=== PATIENT | female | born 1950 | race Caucasian/White ===

== ENCOUNTER 2019-05-14 13:59 | Inpatient (IN) | payer OTHER, BC ==
[~2019-05-14] VITALS: Ht 165.1 cm; Wt 76.2 kg
--- NOTE | 2019-05-14 13:59 | NUR ---
PATIENT BIBA TO BED 9 AT THIS TIME.
--- NOTE | 2019-05-14 14:02 | NUR ---
C/O WEAKNESS TO LOWER LEGS X YESTERDAY. PT USUALLY USES A SCOOTER TO MOVE BUT HAS BEEN UNABLE TO RECENTLY MOVE FROM SCOOTER TO BED AND RESTROOM. PT UNABLE TO LIFT LEGS OR HIP DUE TO MS. CAN MOVE ARMS. PT DENIES PAIN. CAREGIVER BEDSIDE. PT ALERT AND AWAKE. VS STABLE. PMH- MS
--- NOTE | 2019-05-14 14:03 | NUR ---
PT BIBA FROM HOME NEURO-PUPILS PERRL, EQUAL ARM FACILITY COORDINATOR, PT MEMORY INTACT, SPEAKING IN FULL AND COMPLETE SENTENCES PT UNABLE TO ELEVATE LOWER EXTREMETIES
[2019-05-14 14:08] VITALS: BP 103/54
--- NOTE | 2019-05-14 14:37 | NUR ---
LAB AT BEDSIDE
--- NOTE | 2019-05-14 14:45 | NUR ---
report given to tyler eason, transfer of care
[2019-05-14 14:48] LABS: BASOPHILS # (AUTO) 0.1 K/uL (0.00-0.22); BASOPHILS % (AUTO) 0.5 % (0.0-2.0); EOSINOPHILS # (AUTO) 0.1 K/uL (0-0.4); EOSINOPHILS % (AUTO) 0.5 % (0.0-4.0); HEMATOCRIT 41.7 % (36-48); HEMOGLOBIN 13.6 g/dL (12.0-16.0); LYMPHOCYTES # (AUTO) 1.7 K/uL (2.5-16.5); LYMPHOCYTES % (AUTO) 11.2 % (20.5-51.1); MEAN CORPUSCULAR HEMOGLOBIN 28 pg (27-31); MEAN CORPUSCULAR HGB CONC 33 g/dL (33-37); MEAN CORPUSCULAR VOLUME 86.9 fL (80-94); MONOCYTES % (AUTO) 6.3 % (1.7-9.3); NEUTROPHILS # (AUTO) 12.3 K/uL (1.8-7.7); NEUTROPHILS % (AUTO) 81.5 % (42.2-75.2); PLATELET COUNT (AUTO) 311 K/uL (140-450); RED CELL DISTRIBUTION WIDTH 13.3 % (11.6-13.7); WHITE BLOOD COUNT (AUTO) 15.1 K/uL (4.8-10.8)
--- NOTE | 2019-05-14 14:54 | NUR ---
BILATERAL LOWER EXTREMEITY EDEMA NOTED WITH SUPERFICIAL ABRASIONS. COOL TO TOUCH EXTREMETIES. PALPABLE POSTIAL PULSES
--- NOTE | 2019-05-14 15:00 | NUR ---
# 14 FR Urinary catheter inserted utilizing sterile technique. Immediate return of 150 ml YELLOW/BROWN urine noted. Urine sample collected and sent to lab. Pt tolerated procedure WELL.
[2019-05-14 15:05] LABS: ANION GAP 13.1 (8-16); CARBON DIOXIDE 28.3 mmol/L (21-32); CREATININE 0.9 mg/dL (0.6-1.3); POTASSIUM 3.4 mmol/L (3.5-5.1)
[2019-05-14 15:11] LABS: ALBUMIN 3.2 g/dL (3.4-5.0); TOTAL BILIRUBIN 0.7 mg/dL (0.0-1.0)
--- NOTE | 2019-05-14 15:14 | NUR ---
XRAY AT BEDSIDE
--- NOTE | 2019-05-14 15:17 | NUR ---
[facility]
[2019-05-14] MEDS ORDERED: NACL 0.9% 1,000 ML IV ONE ×2 (16:00→16:55)
[2019-05-14 16:09] LABS: APPEARANCE,URINE CLEAR (CLEAR); BILIRUBIN,URINE NEGATIVE (NEGATIVE); BLOOD, URINE 2+ (NEGATIVE); COLOR,URINE YELLOW (YELLOW); LEUKOCYTE ESTERASE ,URINE NEGATIVE (NEGATIVE); NITRITE, URINE POSITIVE (NEGATIVE); PH,URINE 5.5 (5.0-9.0); UGLUCOSE NEGATIVE (NEGATIVE)
--- NOTE | 2019-05-14 16:26 | NUR ---
pt refusing nacl bolus at this time. states she wants to go home. dr mckoy states she will speak with pt
[2019-05-14] MEDS ORDERED: LEVOFLOXACIN 500 MG/D5W PREMIX 100 ML IV ONE (16:55)
[2019-05-14 17:05] LABS: RBC,URINE 0-5 /HPF (0-5)
[2019-05-14 17:06] LABS: URINE AMORPHOUS URATE 2+ /HPF (None Seen); WBC,URINE NONE SEEN /HPF (0-5)
[2019-05-14] MEDS ORDERED: HYDROcodone/APAP 5/325 MG 1 TAB TAB PO PRN (17:30)
[2019-05-14] MEDS ORDERED: ZOLPIDEM 5 MG TAB PO PRN (17:30)
[2019-05-14] MEDS ORDERED: ACETAMINOPHEN 325 MG TAB PO PRN (17:30)
[2019-05-14] MEDS ORDERED: ONDANSETRON 4 MG/2 ML VIAL IM/IVP PRN (17:30)
[2019-05-14] MEDS ORDERED: DOCUSATE SODIUM 100 MG GELCAP PO PRN (17:30)
[2019-05-14] MEDS ORDERED: GABA300C PO (17:42)
[2019-05-14] MEDS ORDERED: DIT5 PO (17:42)
[2019-05-14] MEDS ORDERED: ACYC400T PO (17:42)
[2019-05-14] MEDS ORDERED: DULO60EC PO (17:42)
[2019-05-14] MEDS ORDERED: [UNRECOGNIZED DRUG - CODE] PO (17:42)
[2019-05-14] MEDS ORDERED: DULO30EC PO (17:42)
[2019-05-14] MEDS ORDERED: VALS160T2 PO (17:42)
[2019-05-14] MEDS ORDERED: [UNRECOGNIZED DRUG - CODE] IN (17:42)
[2019-05-14] MEDS ORDERED: LEVO0.124 PO (17:42)
--- NOTE | 2019-05-14 17:55 | NUR ---
Patient will be admitted to care of DR ZAMORANO. Admited to MS. Will go to room 108B. Belongings list completed. Report to
--- NOTE | 2019-05-14 18:00 | NUR ---
RECEIVE BEDSIDE REPORT FROM SUPERVISOR SCREEN MAKING NURSE. PATIENT IS AWAKE, ALERT AND ORIENTEDX4. NO SIGNS OF DISTRESS ON RA. SKIN HAS WOUNDS ON BLE. REDNESS ON RLE. PHOTOS TAKEN. IV ON R AC INFUSING NS AT 100. CLEAN, DRY AND INTACT. PATIENT HAS MS, FALL RISK PROTOCOL IN PLACE. MRSA SWAB AND RLE CULTURE DONE. BED IN LOW POSITION, PATIENT ABLE TO MAKE NEEDS KNOWN. WILL CONTINUE TO MONITOR Addendum: 05/14/19 at 1946 by Alexa Carlisle RN B/P 125/40 HR 82 99% RA RR 18 TEMP 97.9
[2019-05-14 18:14] LABS: BARBITURATE, URINE NEG. ng/ml (NEG <=200); BENZODIAZEPINE, URINE NEG. ng/mL (NEG <=200); CANNABINOID, URINE NEG. ng/mL (NEG <=50); COCAINE, URINE NEG. ng/mL (NEG <=300); OPIATE, URINE NEG. ng/mL (NEG <=2000); PHENCYCLIDINE SCREEN,URINE NEG. ng/mL (NEG <=25)
[2019-05-14 18:24] LABS: PROTHROMBIN TIME 10.3 secs (10.8-13.4)
[2019-05-14 18:27] LABS: FREE T4 (FREE THYROXINE) 1.06 ng/dL (0.76-1.46); MAGNESIUM 1.7 mg/dL (1.8-2.4); PHOSPHORUS 3.6 mg/dL (2.5-4.9); THYROID STIMULATING HORMONE 1.62 uIU/mL (0.34-3.74)
[2019-05-14] MEDS: NACL 0.9% 1,000 ML IV SCH (19:00)
[2019-05-14] MEDS ORDERED: POTASSIUM CHLORIDE 40 MEQ, LIDOCAINE MPF 1% 25 MG in NACL 0.9% 250 ML IV ONE (19:30)
--- NOTE | 2019-05-14 19:44 | NUR ---
GAVE BEDSIDE REPORT TO HEALTH INFORMATION TECHNOLOGIST NURSE. PATIENT ENDORSED IN STABLE CONDITION. GAVE NURSE HOME MEDS AND ASKED HER TO UPDATE MED RECON
--- NOTE | 2019-05-14 19:45 | NUR ---
RECEIVED PT FROM MIKE RN PT IS AAOX4 INCONTINEN WITH DX UTI AND MULTIPLE SCLEROSIS, IV ON RT AC INFUSIG WELL, BLE CELLULITIS AND MULTIPLES SCAB, MRSA DONE INITIAL ASSESSMENT DONE , PT BROUG HOME MEDEC LUIS DANIEL OF THEM PT ALREADY TOOK AT HOME DR GARCIA IS HERE AND SEE THE PT
[2019-05-14 20:00] VITALS: BP 116/45
[2019-05-14] MEDS ORDERED: KETOROLAC 15 MG/ML VIAL IVP PRN (20:40)
[2019-05-14] MEDS ORDERED: ACYCLOVIR PO SCH (21:00)
[2019-05-14] MEDS ORDERED: cefTRIAXone 1,000 MG VIAL ONE (21:17)
[2019-05-14] MEDS ORDERED: GLAT40SY SQ (21:24)
[2019-05-14] MEDS ORDERED: BACL10TA4 PO (21:38)
[2019-05-14] MEDS: ACYCLOVIR 200 MG CAP PO SCH (21:55)
[2019-05-14] MEDS ORDERED: MAG SULF 2000 MG/WATER PREMIX 50 ML IV SCH (22:40)
--- NOTE | 2019-05-14 23:00 | NUR ---
DANG CATH INSERTED WITH FR 16 DRAINING CLEAR WANDA URINE.
[2019-05-15] VITALS: BP 110/40
--- NOTE | 2019-05-15 | NUR ---
DANG CATH INFUSING WELL YELLOW URINE PT HAS A BM SEMI SOLID
[2019-05-15 04:00] VITALS: BP 94/76
--- NOTE | 2019-05-15 04:00 | NUR ---
SPONGE BATH GIVEN LINEN CHANGED REPOSITIONED Q2H , DANG CATH DRAINING WELL;YELLOW URINE
[2019-05-15] MEDS ORDERED: LEVOTHYROXINE 0.025 MG TAB ONE ×2 (06:15→06:17)
[2019-05-15] MEDS ORDERED: LEVOTHYROXINE 0.1 MG TAB ONE (06:16)
[2019-05-15] MEDS: NACL 0.9% 1,000 ML IV SCH ×2 (06:25→23:50)
--- NOTE | 2019-05-15 06:25 | NUR ---
PATIENT HAS BEEN SCREENED AND CATEGORIZED HIGH NUTRITION RISK. PATIENT WILL BE SEEN WITHIN 1-2 DAYS OF ADMISSION. 05/13/19-05/15/19 MADDIE RIVAS MS, RDN
[2019-05-15] MEDS: LEVOTHYROXINE 0.1 MG, LEVOTHYROXINE 0.025 MG PO SCH ×2 (06:27)
[2019-05-15] MEDS ORDERED: LEVOTHYROXINE 0.112 MG TAB PO SCH (06:30)
--- NOTE | 2019-05-15 07:00 | NUR ---
PT IS ENDORSED TO DAY SHIFT NURSE FOR CONTINUE OF CARE
--- NOTE | 2019-05-15 07:25 | NUR ---
RECEIVED REPORT FROM SINGLE CORNER CUTTER NURSE. PATIENT SITTING IN BED TALKING ON THE PHONE. NO DISTRESS NOTED. DENIES ANY PAIN. AAOX4, CALM, COOPERATIVE, SKIN COLOR APPROPRIATE TO ETHNICITY, WARM TO TOUCH. BLE CELLULITIS WITH REDNESS AND MULTIPLE SCABS NOTED. IV SITE INTACT, PATENT, AND INFUSING IVF PER MD ORDERS. RESPIRATIONS EVEN, UNLABORED, ON ROOM AIR. REVIEWED PLAN OF CARE WITH PATIENT. PATIENT VERBALIZED UNDERSTANDING. SAFETY MEASURES IN PLACE, CALL LIGHT WITHIN REACH. WILL CONTINUE TO MONITOR.
[2019-05-15 07:43] LABS: CARBON DIOXIDE 27.6 mmol/L (21-32); CREATININE 1.3 mg/dL (0.6-1.3); POTASSIUM 3.6 mmol/L (3.5-5.1)
[2019-05-15 07:44] LABS: BASOPHILS % (AUTO) 0.3 % (0.0-2.0); EOSINOPHILS # (AUTO) 0.1 K/uL (0-0.4); EOSINOPHILS % (AUTO) 0.8 % (0.0-4.0); HEMATOCRIT 33.4 % (36-48); HEMOGLOBIN 10.8 g/dL (12.0-16.0); LYMPHOCYTES % (AUTO) 14.6 % (20.5-51.1); MEAN CORPUSCULAR HEMOGLOBIN 28 pg (27-31); MEAN CORPUSCULAR HGB CONC 32 g/dL (33-37); MEAN CORPUSCULAR VOLUME 87.8 fL (80-94); MONOCYTES # (AUTO) 0.9 K/uL (0.8-1.0); MONOCYTES % (AUTO) 6.3 % (1.7-9.3); NEUTROPHILS # (AUTO) 10.9 K/uL (1.8-7.7); PLATELET COUNT (AUTO) 241 K/uL (140-450); RED BLOOD CELL COUNT(AUTO) 3.81 MIL/uL (4.20-5.40); RED CELL DISTRIBUTION WIDTH 13.5 % (11.6-13.7)
[2019-05-15 07:52] LABS: CHOL/HDL RATIO 2.5 (1-4.5)
[2019-05-15 08:00] VITALS: BP 85/39
--- NOTE | 2019-05-15 08:57 | NUR ---
(05/15/19) RD INITIAL ASSESSMENT COMPLETED PLEASE REFER TO NUTRITION ASSESSMENT UNDER CARE ACTIVITY FOR ESTIMATED NUTRITIONAL NEEDS. RD RECOMMENDATIONS: 1. CONTINUE REGULAR DIET TOLERATED. 2. RD WILL F/U 5-7 DAYS; LOW RISK. MADDIE RIVAS MS, RDN
[2019-05-15] MEDS: VALSARTAN 80 MG TAB PO SCH (09:00)
[2019-05-15] MEDS ORDERED: DULoxetine 30 MG CAPDR PO SCH ×3 (09:00→11:00)
[2019-05-15] MEDS ORDERED: GABAPENTIN 300 MG CAP PO SCH ×2 (09:00→21:00)
[2019-05-15] MEDS ORDERED: NON-FORMULARY ITEM MC SCH (09:00)
[2019-05-15 09:30] VITALS: BP 118/41
--- NOTE | 2019-05-15 10:45 | NUR ---
DISTRICT COURT ADMINISTRATOR AT BEDSIDE REVIEWING PLAN OF CARE AND PLACING DRESSING ON BLE FOR VENOUS STASIS ULCERS. PATIENT TOLERATED WELL. SCHEDULED MEDICATIONS DUE GIVEN. WILL CONTINUE TO MONITOR.
[2019-05-15] MEDS: ACYCLOVIR 200 MG CAP PO SCH ×2 (10:57→21:13)
[2019-05-15] MEDS: PANTOPRAZOLE 40 MG TABEC PO SCH (10:57)
[2019-05-15] MEDS: OXYBUTYNIN 5 MG TAB PO SCH (10:57)
[2019-05-15] MEDS: LACTOBACILLUS RHAMNOSUS GG 1 EACH CAP PO SCH (10:58)
[2019-05-15] MEDS: BACLOFEN 10 MG TAB PO SCH ×3 (10:58→16:52)
[2019-05-15] MEDS ORDERED: INDAPAMIDE 1.25 MG PO SCH (11:05)
--- NOTE | 2019-05-15 12:13 | NUR ---
PATIENT SITTING IN BED COMFORTABLY. NO DISTRESS NOTED. SCHEDULED MEDICATIONS DUE GIVEN. WILL CONTINUE TO MONITOR.
--- NOTE | 2019-05-15 13:39 | NUR ---
PATIENT SITTING IN BED TALKING WITH FAMILY MEMBERS AT BEDSIDE. NO DISTRESS NOTED. DENIES ANY PAIN. SCHEDULED MEDICATIONS DUE GIVEN. WILL CONTINUE TO MONITOR.
[2019-05-15 16:00] VITALS: BP 101/31
--- NOTE | 2019-05-15 16:54 | NUR ---
SCHEDULED MEDS DUE GIVEN. WILL CONTINUE TO MONITOR.
--- NOTE | 2019-05-15 19:21 | NUR ---
GAVE REPORT TO DIRECTOR OF LITIGATION NURSE FOR CONTINUITY OF CARE. PATIENT IN STABLE CONDITION.
--- NOTE | 2019-05-15 19:21 | NUR ---
RECIEVED PT . AAOX4 ,NID -O2 SAT WNL , BUT PT. IS HYPOTENSIVE - 96/36 - BUT ASYMPTOMATIC - DENIES ANY PAIN AT THIS TIME , ON FC - DRAINING YELLOWISH U.O , BLE WITH CELLULITIS - THE AM NURSE SAID DON'T REMOVED BOOT OR DRESSING ONTHE LEG/S , LET THE POWER GENERATION PLANT OPERATOR REMOVE IT PER ORDERED BY POWER GENERATION PLANT OPERATOR , DENIES ANY PAIN.IV SITE INTACT AND PATENT, PLAN OF CARE DISCUSSED AND VERBALIZED UNDERSTANDING. WILL CONT, TO MONITOR.
[2019-05-15 20:00] VITALS: BP 90/36
[2019-05-15] MEDS ORDERED: NACL 0.9% 250 ML IV ONE ×2 (22:20→23:50)
--- NOTE | 2019-05-15 22:34 | NUR ---
BP RE CHECKED 96/36 - SITTING POSITION - 250NSS IVF GIVEN ORDERED. - WILL CONT. TO MONITOR.
--- NOTE | 2019-05-15 23:50 | NUR ---
REFER TO RONALD - STILL HYPOTENSIVE 90/40- BUT ASYMPTOMATIC - IVF NSS 259 GIVEN BOLUS ORDERD WILL CONT. TO MONITOR
[2019-05-16] VITALS: BP 90/30
--- NOTE | 2019-05-16 01:00 | NUR ---
90/50 BP INFORM RONALD - ASYMPTOMATIC -NO FRUTHER OREDERED LONG ASYMPTOMATIC NICK MADE WILL MONITOR
--- NOTE | 2019-05-16 02:00 | NUR ---
MADE ROUNDS - HYPOTENSIVE , BUT ASYMPTOMATIC , COMFORTABLE LYING ON BED - WITH FC - GOOD U.O
[2019-05-16 04:00] VITALS: BP 90/40
--- NOTE | 2019-05-16 04:00 | NUR ---
NO COMPLAIN MADE AT THIS TIME - V/S - MONITORING - CALL LIGHT WITHIN REACH
[2019-05-16] MEDS ORDERED: LEVOTHYROXINE 0.025 MG TAB ONE ×3 (05:41→05:49)
[2019-05-16] MEDS ORDERED: NACL 0.9% 250 ML IV ONE (05:55)
--- NOTE | 2019-05-16 06:00 | NUR ---
RONALD INFORMED ABOUT PT. PERSISTENT LOW BP - WILL FF. UP - WOF THE V/S . CALL LIGHT WITHIN REACH.
--- NOTE | 2019-05-16 07:05 | NUR ---
RECEIVED PT FROM RESTAURANT MAINTENANCE TECHNICIAN NURSE, YAMILETH, PT IS AWAKE AND LYING ON THE BED WITH SIDE RAILS UP AND CALL LIGHT WITHIN REACH, IV LINE ON THE RT AC G. 22 WITH NS INFUSING AT 60ML/HR, DANG CATHETER IN PLACE WITH 200ML DRAIN OF URINE, PT DENIES PAIN AND HAS B/L LEGS CELLULITIS REINFORCED WITH DRESSINGS, NO SIGN OF DISTRESS NOTED AND WILL MONITOR PT.
[2019-05-16 07:07] LABS: BASOPHILS % (AUTO) 0.5 % (0.0-2.0); EOSINOPHILS # (AUTO) 0.5 K/uL (0-0.4); EOSINOPHILS % (AUTO) 5.4 % (0.0-4.0); HEMATOCRIT 30.9 % (36-48); HEMOGLOBIN 10.4 g/dL (12.0-16.0); LYMPHOCYTES # (AUTO) 2.7 K/uL (2.5-16.5); LYMPHOCYTES % (AUTO) 29.7 % (20.5-51.1); MEAN CORPUSCULAR HEMOGLOBIN 29 pg (27-31); MEAN CORPUSCULAR HGB CONC 34 g/dL (33-37); MEAN CORPUSCULAR VOLUME 87.3 fL (80-94); MONOCYTES # (AUTO) 0.7 K/uL (0.8-1.0); MONOCYTES % (AUTO) 8.1 % (1.7-9.3); NEUTROPHILS # (AUTO) 5.1 K/uL (1.8-7.7); NEUTROPHILS % (AUTO) 56.3 % (42.2-75.2); PLATELET COUNT (AUTO) 231 K/uL (140-450); RED BLOOD CELL COUNT(AUTO) 3.54 MIL/uL (4.20-5.40); RED CELL DISTRIBUTION WIDTH 13.5 % (11.6-13.7)
--- NOTE | 2019-05-16 07:18 | NUR ---
JUST GAVE BOLUS LATEDST BP 90/50 - ENDORSED TO AM SHIFT AAOX4 - NO FURTHER COMPLAIN MADE . RONALD INFORMED THAT THE PT. STILL HYPOTENSIVE.
[2019-05-16 07:19] LABS: ANION GAP 12.5 (8-16); CARBON DIOXIDE 24.9 mmol/L (21-32); CREATININE 0.8 mg/dL (0.6-1.3); POTASSIUM 3.4 mmol/L (3.5-5.1)
[2019-05-16 08:00] VITALS: BP 107/41
[2019-05-16] MEDS: LEVOTHYROXINE 0.1 MG, LEVOTHYROXINE 0.025 MG PO SCH ×2 (08:03)
--- NOTE | 2019-05-16 08:35 | NUR ---
PT. SEEN AND TREATED BY CONFERENCE ASSISTANT, WILL CONTINUE TO FOLLOW INSTRUCTIONS FOR BLE WOUNDS
[2019-05-16] MEDS ORDERED: DULoxetine 30 MG CAPDR PO SCH (09:00)
[2019-05-16] MEDS: VALSARTAN 80 MG TAB PO SCH (09:00)
[2019-05-16] MEDS ORDERED: POTASSIUM CHLORIDE 10 MEQ TABER PO SCH (09:00)
[2019-05-16] MEDS ORDERED: INDAPAMIDE 1.25 MG PO SCH (09:00)
[2019-05-16] MEDS ORDERED: PATIENTS OWN INJECTABLE SUBQ SCH (09:00)
--- NOTE | 2019-05-16 09:03 | NUR ---
DC PLANNIN YRS OLD FEMALE PATIENT WAS ADMITTED FROM HOME WITH A DX OF UTI AND MULTIPLE SCLEROSIS. PT HAS A HX OF MS HTN, HYPOTHYROIDISM. ADMINISTERED IV ROCEPHIN FOR UTI, PT ORDERED FOR GENERALIZE WEAKNESS , CONTINUE HOME MEDS PAIN MEDICATION AND NEUROLOGIST CONSULT. DC PLAN PER MD ORDER. CM TO FOLLOW. Addendum: 05/16/19 at 1313 by Bonnie Rosenbaum CM DC PLANNING PER DR WAGGONER CONSULT TO TRANSFER TO [facility]IGHER LEVEL TO [facility] PER PT REQUEST. CALLED [facility] [phone] SPOKE WITH JESSY URIAS , AND FAXED TO [phone] . CM TO FOLLOW Addendum: 05/16/19 at 6145 by Bonnie Rosenbaum CM DC PLANNING RECEIVED A CALL FROM [facility] SPOKE WITH [facility] THEY ACCEPTED PATIENT. PT CAN GO TO ROOM [address] YAS ASH # TO GIVE REPORT [phone] ARRANGED TRANSPORT WITH [facility] HYDRAULIC LIFT OPERATOR TIME 3:30 PM NOTIFIED WALLY CESPEDES
[2019-05-16] MEDS: LACTOBACILLUS RHAMNOSUS GG 1 EACH CAP PO SCH (10:03)
[2019-05-16] MEDS: ACYCLOVIR 200 MG CAP PO SCH (10:03)
--- NOTE | 2019-05-16 10:03 | NUR ---
PT WAS GIVEN ORAL MEDICATIONS AND TOLERATED, WILL MONITOR PT.
[2019-05-16] MEDS: BACLOFEN 10 MG TAB PO SCH ×2 (10:04→13:56)
[2019-05-16] MEDS: OXYBUTYNIN 5 MG TAB PO SCH (10:04)
[2019-05-16] MEDS: PANTOPRAZOLE 40 MG TABEC PO SCH (10:06)
--- NOTE | 2019-05-16 13:56 | NUR ---
PT WAS GIVEN BACLOFEN NOW AND WILL MONITOR PT.
--- NOTE | 2019-05-16 14:40 | NUR ---
Fittings Tightener Assessment/Discharge Plan High Risk DC Screen Yes Name: Neli Harper Home Relationship: sister Pre-Admission Living Arrangements: Lives Alone Prior ADL Independent Current Home Health Name/Tel: N/A Current DME/02 Name/Tel: electric wheelchair, walker, no home O2 Current Hospice Name/Tel: N/A Current Dialysis Name/Tel: N/A Healthcare Decision Maker: Patient Advance Directive No Information Taught: Advance Directive Community Resources Person Taught: Patient Teaching Tools: Community Resources Computer Generated Print Verbal Factors Affecting Learning: None Participation Level: Active Evaluation: Gestures Understanding Verbalizes Understanding Educator: LORRAINE Malone Tentative Discharge Plan Summary: Patient is a 68 year old female, admitted for UTI and MS. I met with patient at bedside. Patient alert and oriented x4. Patient lives alone at home and is in agreement with transfer to [facility]. Patient's pcp is Verena Delgado. She drives to pcp's office. Patient's medication is delivered to her home and does not have any difficulty obtaining them. She stated she is able to walk short distance (5 feet) using her walker. She denied hx of mental health. She also denied alcohol/substance abuse. She requested community resources for home care. I provided her with community resources for home care including information on [facility]. Fittings Tightener and/or Local Hazmat Driver will follow up as needed. Signature: LORRAINE Malone Date: May 16, 2019
--- NOTE | 2019-05-16 15:20 | NUR ---
CALLED [facility] AT [phone] AND GAVE REPORT TO SAM, CHARGE NURSE, AND INFORMED THAT PT WILL BE PLACE IN RM 2143 AND WILL BE TRANSPORTED VIA GURNEY BY [facility], AND RN VERBALIZED UNDERSTANDING.
--- NOTE | 2019-05-16 16:00 | NUR ---
DISCHARGED TEACHINGS AND INSTRUCTIONS WERE GIVEN TO PT AND VERBALIZED UNDERSTANDING. PT VERBALIZED THAT SHE INFORMED HER SISTER, QUANG SELLERS AT [phone], THAT SHE WILL BE TRANSFERRED TO [facility].
--- NOTE | 2019-05-16 16:10 | NUR ---
DISCHARGED PT TO [facility] VIA [facility] WITH [facility]SPORT AND FRIEND, DANG CATHETER AND IV LINE ON THE RT AC G. 22 WERE KEPT INTACT, INSTRUCTIONS AND TEACHINGS WERE GIVEN TO PT AND VERBALIZED UNDERSTANDING, PT IS STABLE AT THIS TIME.
[2019-05-16 17:29] LABS: MAGNESIUM 2.3 mg/dL (1.8-2.4); PHOSPHORUS 3.2 mg/dL (2.5-4.9)
[2019-05-17] MEDS ORDERED: GLATIRAMER ACETATE 40 MG SUBQ SCH (09:00)
== END 2019-05-16 16:05 | disposition short-term general hospital (02) | DRG 58 ==
LOC: MED 13:59 → MTU 17:28
PROVIDERS: ADMIT General Practice; ATTEND General Practice
DX: G35 Multiple sclerosis (principal); N17.0 Acute kidney failure with tubular necrosis; G93.41 Metabolic encephalopathy; E44.0 Moderate protein-calorie malnutrition; N39.0 Urinary tract infection, site not specified; I87.2 Venous insufficiency (chronic) (peripheral); E86.0 Dehydration; R31.9 Hematuria, unspecified; D64.9 Anemia, unspecified; K44.9 Diaphragmatic hernia without obstruction or gangrene; B35.1 Tinea unguium; A60.00 Herpesviral infection of urogenital system, unspecified; G62.9 Polyneuropathy, unspecified; L30.9 Dermatitis, unspecified; E89.0 Postprocedural hypothyroidism; E83.42 Hypomagnesemia; M62.462 Contracture of muscle, left lower leg; I87.8 Other specified disorders of veins; M62.461 Contracture of muscle, right lower leg; L84 Corns and callosities; M48.061 Spinal stenosis, lumbar region without neurogenic claudication; N32.81 Overactive bladder; M47.816 Spondylosis without myelopathy or radiculopathy, lumbar region; E87.6 Hypokalemia; I10 Essential (primary) hypertension; Z68.28 Body mass index [BMI] 28.0-28.9, adult; Z79.899 Other long term (current) drug therapy; Z90.49 Acquired absence of other specified parts of digestive tract; Z88.1 Allergy status to other antibiotic agents; Z88.5 Allergy status to narcotic agent
CPT/HCPCS: 36415; 70360; 71045; 72131; 80048; 80053; 80305; 81001; 82150; 83036; 83605; 83690; 83735; 83880; 84100; 84134; 84439; 84443; 84484; 85025; 85610; 85730; 87040; 87070; 87075; 87081; 87086; 87186; 87205; 87804; 93005; 93970; 96365; 97116; 97161-GP; 97530; 99285; J0696; J1644; J1885; J3475; J7030; J7060; Q0092

== ENCOUNTER 2021-12-23 19:56 | Emergency (ER) | payer OTHER, BC ==
[~2021-12-23] VITALS: Ht 165.1 cm; Wt 77.1 kg
[2021-12-23 19:56] VITALS: BP 129/69
[~2021-12-23 19:56] MED LIST: ACYC400T14 PO; BACL10TA4 PO; DIT5 PO; DULO30EC PO; DULO60EC1 PO; GABA300C PO; GLAT40SY SQ; LEVO0.124 PO; VALS160T2 PO; [UNRECOGNIZED DRUG - CODE] PO
--- NOTE | 2021-12-23 20:08 | NUR ---
Cole bradshaw in ED - 12/23/21 at 2008 by MEDCRIS PT BIBA BLS ER BED 8
--- NOTE | 2021-12-23 20:08 | NUR ---
PT BIBA BLS ER BED 7
[2021-12-23 20:40] LABS: BASOPHILS % (AUTO) 0.2 % (0.0-2.0); HEMOGLOBIN 8.5 g/dL (12.0-16.0); LYMPHOCYTES # (AUTO) 1.2 K/uL (2.5-16.5); LYMPHOCYTES % (AUTO) 6.4 % (20.5-51.1); MEAN CORPUSCULAR HEMOGLOBIN 19 pg (27-31); MEAN CORPUSCULAR HGB CONC 30 g/dL (33-37); MEAN CORPUSCULAR VOLUME 65.8 fL (80-94); MONOCYTES # (AUTO) 0.7 K/uL (0.8-1.0); NEUTROPHILS # (AUTO) 16.6 K/uL (1.8-7.7); NEUTROPHILS % (AUTO) 89.4 % (42.2-75.2); PLATELET COUNT (AUTO) 410 K/uL (140-450); WHITE BLOOD COUNT (AUTO) 18.6 K/uL (4.8-10.8)
[2021-12-23 20:58] LABS: ALBUMIN 3.1 g/dL (3.4-5.0); ANION GAP 13.8 (8-16); ASPARTATE AMINOTRANSFERASE 19 U/L (15-37); CARBON DIOXIDE 25.2 mmol/L (21-32); CHLORIDE 108 mmol/L (98-107); GLUCOSE 130 mg/dL (74-106); SODIUM SERUM 143 mmol/L (136-145); TOTAL BILIRUBIN 0.4 mg/dL (0.0-1.0); UREA NITROGEN, BLOOD 19 mg/dL (7-18)
--- NOTE | 2021-12-23 21:12 | NUR ---
PT IS ON BEDSIDE MONITOR
--- NOTE | 2021-12-23 21:45 | NUR ---
71YR OLD FEMALE BIB EMS ALERTED MENTAL STATUS. PT WAS FOUND IN BATHROOM BY CARGIVER. PT STATES NOT REMEMBERING HOW SHE GOT ON FLOOR. DENIES ANY HEAD PAIN OR BACK PAIN. CHRONIC L ARM PAIN. PT HAS HX OF MS. PT IS A&OX4. ON BEDSIDE MONITOR HOB ELEVATED BED AT LOWEST POSITION. MS HTN UNKNOWN
[2021-12-23 23:40] VITALS: BP 129/69
--- NOTE | 2021-12-23 23:40 | NUR ---
Patient discharged with v/s stable. Written and verbal after care instructions given and explained. Patient verbalized understanding. Ambulatory with steady gait. All questions addressed prior to discharge. Advised to follow up with PMD.
--- NOTE | 2021-12-23 23:45 | NUR ---
The patient's care was reviewed and supervised by Shasta Garcia RN, RN.
== END 2021-12-23 23:45 | disposition home or self-care (01) ==
LOC: MED 19:56
DX: R55 Syncope and collapse (principal); D72.829 Elevated white blood cell count, unspecified
CPT/HCPCS: 36415; 80053; 83605; 85025; 99283

== ENCOUNTER 2022-08-16 07:31 | Emergency (ER) | payer OTHER, BC ==
[~2022-08-16] VITALS: Ht 157.5 cm; Wt 63.5 kg
[~2022-08-16 07:31] MED LIST changes: -DIT5 PO; +OXYB5TAB44 PO
--- NOTE | 2022-08-16 07:32 | NUR ---
PT PLACED IN BED 02 BY [facility]
[2022-08-16 07:35] VITALS: BP 111/51
[2022-08-16] MEDS ORDERED: NACL 0.9% 2,000 ML IV ONE (07:40)
[2022-08-16] MEDS ORDERED: cefTRIAXone 2,000 MG in DEXTROSE 5% 100 ML IV ONE (07:40)
--- NOTE | 2022-08-16 08:04 | NUR ---
erin swabbed at this time
[2022-08-16 08:19] VITALS: BP 121/41
[2022-08-16] MEDS ORDERED: cefTRIAXone 2,000 MG VIAL ONE (08:33)
[2022-08-16 09:32] LABS: BASOPHILS # (AUTO) 0.1 K/uL (0.00-0.22); EOSINOPHILS # (AUTO) 0.4 K/uL (0-0.4); EOSINOPHILS % (AUTO) 4.1 % (0.0-4.0); HEMATOCRIT 31.5 % (36-48); HEMOGLOBIN 9.6 g/dL (12.0-16.0); LYMPHOCYTES # (AUTO) 3.1 K/uL (2.5-16.5); LYMPHOCYTES % (AUTO) 30.3 % (20.5-51.1); MEAN CORPUSCULAR HEMOGLOBIN 21 pg (27-31); MEAN CORPUSCULAR HGB CONC 30 g/dL (33-37); MEAN CORPUSCULAR VOLUME 67.5 fL (80-94); MONOCYTES # (AUTO) 0.7 K/uL (0.8-1.0); NEUTROPHILS # (AUTO) 5.9 K/uL (1.8-7.7); NEUTROPHILS % (AUTO) 57.6 % (42.2-75.2); PLATELET COUNT (AUTO) 450 K/uL (140-450); RED BLOOD CELL COUNT(AUTO) 4.66 MIL/uL (4.20-5.40); RED CELL DISTRIBUTION WIDTH 19.2 % (11.6-13.7); WHITE BLOOD COUNT (AUTO) 10.2 K/uL (4.8-10.8)
[2022-08-16 09:58] LABS: ANION GAP 12.3 (8-16); CARBON DIOXIDE 28.3 mmol/L (21-32); CHLORIDE 105 mmol/L (98-107); CREATININE 0.8 mg/dL (0.6-1.3); GLUCOSE 108 mg/dL (74-106); POTASSIUM 3.6 mmol/L (3.5-5.1); SODIUM SERUM 142 mmol/L (136-145); UREA NITROGEN, BLOOD 27 mg/dL (7-18)
[2022-08-16 10:04] LABS: ALBUMIN 3.4 g/dL (3.4-5.0); ASPARTATE AMINOTRANSFERASE 13 U/L (15-37); TOTAL BILIRUBIN 0.3 mg/dL (0.0-1.0)
--- NOTE | 2022-08-16 11:30 | NUR ---
STRAIGHT CATHETER TO OBTAIN URINE SAMPLE PATIENT TOLERATED WELL.
[2022-08-16 12:39] LABS: APPEARANCE,URINE CLEAR (CLEAR); BILIRUBIN,URINE NEGATIVE (NEGATIVE); BLOOD, URINE NEGATIVE (NEGATIVE); COLOR,URINE YELLOW (YELLOW); LEUKOCYTE ESTERASE ,URINE 1+ (NEGATIVE); NITRITE, URINE POSITIVE (NEGATIVE); UGLUCOSE NEGATIVE (NEGATIVE)
[2022-08-16] MEDS ORDERED: CEPH-588 PO (12:57)
--- NOTE | 2022-08-16 16:42 | NUR ---
Patient discharged with v/s stable. Written and verbal after care instructions given and explained. Patient alert, oriented and verbalized understanding of instructions. Wheel Chair Assisted with to home ACCOMPANIED BY FRIEND RYLIE PATIENT WAS ASSISTED FROM WHEELCHAIR TO HER PERSONAL SCOOTER TO THE CAR. All questions addressed prior to discharge. ID band removed. Patient advised to follow up with PMD. Rx of KEFEX given. Patient educated on indication of medication including possible reaction and side effects. Opportunity to ask questions provided and answered.STABLE UPON DISCHARGED
== END 2022-08-16 16:41 | disposition home or self-care (01) ==
LOC: MED 07:31
DX: N39.0 Urinary tract infection, site not specified (principal); G35 Multiple sclerosis; Z20.822 Contact with and (suspected) exposure to COVID-19; I10 Essential (primary) hypertension; Z79.899 Other long term (current) drug therapy; Z79.2 Long term (current) use of antibiotics; Z88.5 Allergy status to narcotic agent; Z88.1 Allergy status to other antibiotic agents
CPT/HCPCS: 36415; 71045; 80053; 81001; 83605; 84484; 85025; 87040; 87086; 87426; 93005; 96365; 99285; J0696; J7030; Q0092

== ENCOUNTER 2022-12-13 10:53 | Emergency (ER) | payer OTHER, BC ==
[~2022-12-13] VITALS: Ht 162.6 cm; Wt 59.0 kg
[~2022-12-13 10:53] MED LIST changes: +CEPH-588 PO
--- NOTE | 2022-12-13 10:58 | NUR ---
PATIENT BIBA TO BED 4.
[2022-12-13 10:59] VITALS: BP 103/43; PULSE 69; RESP 16; TEMP 98.1; O2SAT 98
--- NOTE | 2022-12-13 11:05 | NUR ---
72YO F BIB C/O BLOODY DANG CATH X 4 DAYS, PT STATES ABD FEELS BLOATED. PT DENIES FEVER, ABD PAIN, NAUSEA, VOMITING, VAG PAIN, BACK PAIN. LAST BM THURSDAY. NAD NOTED, SAFETY MAINTAINED. HX; HTN, MS
--- NOTE | 2022-12-13 11:35 | NUR ---
X-RAY AT BEDSIDE.
[2022-12-13 12:37] LABS: APPEARANCE,URINE SL CLOUDY (CLEAR); BILIRUBIN,URINE NEGATIVE (NEGATIVE); BLOOD, URINE 3+ (NEGATIVE); COLOR,URINE YELLOW (YELLOW); LEUKOCYTE ESTERASE ,URINE 3+ (NEGATIVE); NITRITE, URINE POSITIVE (NEGATIVE); PH,URINE 8.5 (5.0-9.0); UGLUCOSE NEGATIVE (NEGATIVE)
[2022-12-13 12:46] LABS: RBC,URINE 50-80 /HPF (0-5)
[2022-12-13] MEDS ORDERED: MIRABULK PO (12:46)
[2022-12-13] MEDS ORDERED: DOCU-299 PO (12:46)
[2022-12-13] MEDS ORDERED: SULF-59 PO (12:46)
[2022-12-13 13:01] VITALS: O2SAT 98
--- NOTE | 2022-12-13 13:01 | NUR ---
TRANSPORTATION TO ARRIVE FROM [phone].
[2022-12-13 14:55] VITALS: BP 106/47; PULSE 72; RESP 16; TEMP 98; O2SAT 96
--- NOTE | 2022-12-13 14:55 | NUR ---
Patient discharged with v/s stable. Written and verbal after care instructions given. Patient alert, oriented and verbalized understanding of instructions. Ambulance Transport with to home. All questions addressed prior to discharge. ID band removed. Patient advised to follow up with PMD. Rx of COLACE, MIRALAX AND BACTRIM DS TABLET given. Opportunity to ask questions provided and answered.
--- NOTE | 2022-12-13 14:57 | NUR ---
The patient's care was reviewed and supervised by [place] [facility] ED, RN.
== END 2022-12-13 14:55 | disposition home or self-care (01) ==
LOC: MED 10:53
DX: N39.0 Urinary tract infection, site not specified (principal); K59.00 Constipation, unspecified; I10 Essential (primary) hypertension; Z88.5 Allergy status to narcotic agent; Z88.1 Allergy status to other antibiotic agents; Z79.899 Other long term (current) drug therapy; Z98.890 Other specified postprocedural states
CPT/HCPCS: 74018; 81001; 87086; 99284

== ENCOUNTER 2023-02-18 22:26 | Emergency (ER) | payer OTHER, BC ==
[~2023-02-18] VITALS: Ht 162.6 cm; Wt 72.6 kg
[2023-02-18 22:26] VITALS: BP 122/63; PULSE 67; RESP 16; TEMP 97.7; O2SAT 98
[~2023-02-18 22:26] MED LIST changes: +DOCU-299 PO; +MIRABULK PO; +SULF-59 PO
[2023-02-18 22:55] LABS: BASOPHILS # (AUTO) 0.1 K/uL (0.00-0.22); BASOPHILS % (AUTO) 0.8 % (0.0-2.0); EOSINOPHILS # (AUTO) 0.5 K/uL (0-0.4); EOSINOPHILS % (AUTO) 4.3 % (0.0-4.0); HEMOGLOBIN 11.4 g/dL (12.0-16.0); LYMPHOCYTES # (AUTO) 3.7 K/uL (2.5-16.5); LYMPHOCYTES % (AUTO) 33.3 % (20.5-51.1); MEAN CORPUSCULAR HEMOGLOBIN 27 pg (27-31); MEAN CORPUSCULAR HGB CONC 33 g/dL (33-37); MEAN CORPUSCULAR VOLUME 82.4 fL (80-94); MONOCYTES # (AUTO) 0.7 K/uL (0.8-1.0); MONOCYTES % (AUTO) 6.6 % (1.7-9.3); NEUTROPHILS # (AUTO) 6.1 K/uL (1.8-7.7); PLATELET COUNT (AUTO) 364 K/uL (140-450); RED BLOOD CELL COUNT(AUTO) 4.24 MIL/uL (4.20-5.40); RED CELL DISTRIBUTION WIDTH 16.8 % (11.6-13.7); WHITE BLOOD COUNT (AUTO) 11.1 K/uL (4.8-10.8)
[2023-02-18 23:08] LABS: ALANINE AMINOTRANSFERASE 16 U/L (12-78); ALBUMIN 3.1 g/dL (3.4-5.0); ALKALINE PHOSPHATASE 99 U/L (50-136); ANION GAP 11.2 (8-16); ASPARTATE AMINOTRANSFERASE 17 U/L (15-37); CALCIUM 9.7 mg/dL (8.5-10.1); CHLORIDE 99 mmol/L (98-107); CREATININE 0.8 mg/dL (0.6-1.3); GLUCOSE 84 mg/dL (74-106); POTASSIUM 4.2 mmol/L (3.5-5.1); SODIUM SERUM 133 mmol/L (136-145); TOTAL BILIRUBIN 0.3 mg/dL (0.0-1.0); TOTAL PROTEIN, SERUM 7.1 g/dL (6.4-8.2); UREA NITROGEN, BLOOD 16 mg/dL (7-18)
[2023-02-18 23:46] LABS: APPEARANCE,URINE CLEAR (CLEAR); BILIRUBIN,URINE NEGATIVE (NEGATIVE); BLOOD, URINE 3+ (NEGATIVE); COLOR,URINE YELLOW (YELLOW); LEUKOCYTE ESTERASE ,URINE 3+ (NEGATIVE); NITRITE, URINE NEGATIVE (NEGATIVE); PH,URINE 6.5 (5.0-9.0); PROTEIN,URINE 2+ (NEGATIVE); UGLUCOSE NEGATIVE (NEGATIVE); UROBILINOGEN,URINE 0.2 EU/dL (0.2 - 1)
[2023-02-18 23:51] LABS: RBC,URINE TOO NUMEROUS TO COUN /HPF (0-5)
[2023-02-18 23:52] LABS: BACTERIA,URINE FEW /HPF (None Seen); MUCUS,URINE 1+ /LPF (None Seen); SQUAMOUS EPITHELIAL CELL,UR 0-3 (FEW) /LPF (0-3 (FEW))
[2023-02-19] MEDS ORDERED: CIPR500T4 PO (02:27)
[2023-02-19 04:29] VITALS: O2SAT 98
[2023-02-19] MEDS ORDERED: NACL 0.9% 1,000 ML IV ONE (04:35)
[2023-02-19 05:48] VITALS: BP 92/65; PULSE 88; RESP 16
== END 2023-02-19 07:05 | disposition home or self-care (01) ==
LOC: MED 22:26
DX: N39.0 Urinary tract infection, site not specified (principal); I10 Essential (primary) hypertension; Z79.899 Other long term (current) drug therapy; Z79.2 Long term (current) use of antibiotics; Z88.5 Allergy status to narcotic agent; Z88.1 Allergy status to other antibiotic agents
CPT/HCPCS: 36415; 51702; 80053; 81001; 85025; 87086; 96360; 96361; 99284; J7030; 99283

== ENCOUNTER 2023-04-04 10:18 | Emergency (ER) | payer OTHER, BC ==
[~2023-04-04] VITALS: Ht 165.1 cm; Wt 81.6 kg
[~2023-04-04 10:18] MED LIST changes: +CIPR500T4 PO
[2023-04-04 10:23] VITALS: BP 113/54; PULSE 70; RESP 18; TEMP 98.3; O2SAT 98
[2023-04-04 11:21] LABS: APPEARANCE,URINE CLEAR (CLEAR); BILIRUBIN,URINE NEGATIVE (NEGATIVE); BLOOD, URINE 2+ (NEGATIVE); COLOR,URINE YELLOW (YELLOW); LEUKOCYTE ESTERASE ,URINE 3+ (NEGATIVE); NITRITE, URINE POSITIVE (NEGATIVE); PROTEIN,URINE TRACE (NEGATIVE); UGLUCOSE NEGATIVE (NEGATIVE); UROBILINOGEN,URINE 0.2 EU/dL (0.2 - 1)
[2023-04-04 11:31] LABS: BACTERIA,URINE 3+ /HPF (None Seen); SQUAMOUS EPITHELIAL CELL,UR 4-10 (MOD) /LPF (0-3 (FEW)); WBC,URINE 60-80 /HPF (0-5)
[2023-04-04 11:36] VITALS: O2SAT 99
[2023-04-04 11:47] LABS: BASOPHILS # (AUTO) 0.1 K/uL (0.00-0.22); BASOPHILS % (AUTO) 0.7 % (0.0-2.0); EOSINOPHILS # (AUTO) 0.5 K/uL (0-0.4); EOSINOPHILS % (AUTO) 6.1 % (0.0-4.0); HEMATOCRIT 36.4 % (36-48); HEMOGLOBIN 11.7 g/dL (12.0-16.0); LYMPHOCYTES # (AUTO) 1.7 K/uL (2.5-16.5); LYMPHOCYTES % (AUTO) 20.3 % (20.5-51.1); MEAN CORPUSCULAR HEMOGLOBIN 27 pg (27-31); MEAN CORPUSCULAR HGB CONC 32 g/dL (33-37); MEAN CORPUSCULAR VOLUME 82.5 fL (80-94); MONOCYTES # (AUTO) 0.7 K/uL (0.8-1.0); MONOCYTES % (AUTO) 8.4 % (1.7-9.3); NEUTROPHILS # (AUTO) 5.4 K/uL (1.8-7.7); NEUTROPHILS % (AUTO) 64.5 % (42.2-75.2); PLATELET COUNT (AUTO) 339 K/uL (140-450); RED BLOOD CELL COUNT(AUTO) 4.42 MIL/uL (4.20-5.40); RED CELL DISTRIBUTION WIDTH 13.7 % (11.6-13.7); WHITE BLOOD COUNT (AUTO) 8.4 K/uL (4.8-10.8)
[2023-04-04 11:58] LABS: INR 1.03 (0.8-1.2); PARTIAL THROMBOPLASTIN TIME 21.9 secs (22-35.6); PROTHROMBIN TIME 10.8 secs (10.8-13.4)
[2023-04-04 12:02] LABS: LACTIC ACID 0.8 mmol/L (0.4-2.0)
[2023-04-04 12:10] LABS: ALANINE AMINOTRANSFERASE 21 U/L (12-78); ALKALINE PHOSPHATASE 85 U/L (50-136); ANION GAP 11.6 (8-16); ASPARTATE AMINOTRANSFERASE 17 U/L (15-37); CALCIUM 9.4 mg/dL (8.5-10.1); CARBON DIOXIDE 28.2 mmol/L (21-32); CHLORIDE 102 mmol/L (98-107); CREATININE 0.8 mg/dL (0.6-1.3); GLUCOSE 90 mg/dL (74-106); POTASSIUM 3.8 mmol/L (3.5-5.1); SODIUM SERUM 138 mmol/L (136-145); TOTAL BILIRUBIN 0.2 mg/dL (0.0-1.0); TOTAL PROTEIN, SERUM 7.1 g/dL (6.4-8.2); UREA NITROGEN, BLOOD 14 mg/dL (7-18)
[2023-04-04] MEDS ORDERED: KETOROLAC 30 MG/ML VIAL IVP ONE (14:05)
[2023-04-04] MEDS ORDERED: CEPH-588 PO (14:09)
[2023-04-04] MEDS ORDERED: cefTRIAXone 1,000 MG VIAL ONE (14:10)
[2023-04-04 16:25] VITALS: BP 96/82; PULSE 78; RESP 18; TEMP 97.8; O2SAT 99
== END 2023-04-04 16:23 | disposition home or self-care (01) ==
LOC: MED 10:18
DX: N39.0 Urinary tract infection, site not specified (principal); M19.012 Primary osteoarthritis, left shoulder; I10 Essential (primary) hypertension; G35 Multiple sclerosis; Z88.5 Allergy status to narcotic agent; Z88.8 Allergy status to other drugs, medicaments and biological substances; Z79.899 Other long term (current) drug therapy
CPT/HCPCS: 36415; 73030; 73060; 80053; 81001; 83605; 85025; 85610; 85730; 87040; 87086; 96365; 96375; 99285; J0696; J1885

== ENCOUNTER 2024-02-25 09:05 | Emergency (ER) | payer OTHER, BC ==
[~2024-02-25] VITALS: Ht 162.6 cm; Wt 68.0 kg
[2024-02-25 09:14] VITALS: BP 124/41; PULSE 72; RESP 16; TEMP 99.1; O2SAT 94
[2024-02-25 09:30] VITALS: O2SAT 94
[2024-02-25 09:46] LABS: BILIRUBIN,URINE NEGATIVE (NEGATIVE); BLOOD, URINE 2+ (NEGATIVE); LEUKOCYTE ESTERASE ,URINE 3+ (NEGATIVE); NITRITE, URINE POSITIVE (NEGATIVE); PH,URINE 6.5 (5.0-9.0); PROTEIN,URINE NEGATIVE (NEGATIVE); UGLUCOSE NEGATIVE (NEGATIVE); UROBILINOGEN,URINE 0.2 EU/dL (0.2 - 1)
[2024-02-25 09:48] LABS: BASOPHILS # (AUTO) 0.1 K/uL (0.00-0.22); EOSINOPHILS # (AUTO) 0.2 K/uL (0-0.4); EOSINOPHILS % (AUTO) 6.2 % (0.0-4.0); HEMATOCRIT 35.5 % (36-48); LYMPHOCYTES # (AUTO) 0.8 K/uL (2.5-16.5); MONOCYTES # (AUTO) 0.3 K/uL (0.8-1.0); NEUTROPHILS # (AUTO) 2.5 K/uL (1.8-7.7); WHITE BLOOD COUNT (AUTO) 3.9 K/uL (4.8-10.8)
[2024-02-25 09:52] LABS: APPEARANCE,URINE SLIGHTLY CLOUDY (CLEAR); COLOR,URINE AMBER (YELLOW)
[2024-02-25 09:55] LABS: BACTERIA,URINE 10-30 (MOD) /HPF (None Seen); SQUAMOUS EPITHELIAL CELL,UR 4-10 (MOD) /LPF (0-3 (FEW))
[2024-02-25 09:57] LABS: BASOPHILS % (AUTO) 1.4 % (0.0-2.0); HEMOGLOBIN 11.9 g/dL (12.0-16.0); LYMPHOCYTES % (AUTO) 21.1 % (20.5-51.1); MEAN CORPUSCULAR HEMOGLOBIN 29 pg (27-31); MEAN CORPUSCULAR HGB CONC 34 g/dL (33-37); MEAN CORPUSCULAR VOLUME 85.2 fL (80-94); NEUTROPHILS % (AUTO) 63.3 % (42.2-75.2); PLATELET COUNT (AUTO) 259 K/uL (140-450); RED BLOOD CELL COUNT(AUTO) 4.17 MIL/uL (4.20-5.40); RED CELL DISTRIBUTION WIDTH 13.9 % (11.6-13.7)
[2024-02-25 10:04] LABS: ALANINE AMINOTRANSFERASE 33 U/L (12-78); ALBUMIN 3.1 g/dL (3.4-5.0); ALKALINE PHOSPHATASE 97 U/L (50-136); ANION GAP 6.5 (8-16); ASPARTATE AMINOTRANSFERASE 17 U/L (15-37); CALCIUM 9.4 mg/dL (8.5-10.1); CARBON DIOXIDE 32.9 mmol/L (21-32); CHLORIDE 102 mmol/L (98-107); CREATININE 0.7 mg/dL (0.6-1.3); GLUCOSE 100 mg/dL (74-106); POTASSIUM 3.4 mmol/L (3.5-5.1); SODIUM SERUM 138 mmol/L (136-145); TOTAL BILIRUBIN 0.4 mg/dL (0.0-1.0); TOTAL PROTEIN, SERUM 6.9 g/dL (6.4-8.2); UREA NITROGEN, BLOOD 19 mg/dL (7-18)
[2024-02-25] MEDS ORDERED: cefTRIAXone 1,000 MG VIAL ONE (10:56)
[2024-02-25 11:50] VITALS: O2SAT 98
[2024-02-25 12:00] VITALS: RESP 16
[2024-02-25] MEDS ORDERED: NITR100C7 PO (12:04)
[2024-02-25 14:45] VITALS: BP 118/72; PULSE 72; TEMP 98.7; O2SAT 98
== END 2024-02-25 14:44 | disposition home or self-care (01) ==
LOC: MED 09:05
DX: N39.0 Urinary tract infection, site not specified (principal); I10 Essential (primary) hypertension; Z79.899 Other long term (current) drug therapy; Z88.5 Allergy status to narcotic agent; Z88.1 Allergy status to other antibiotic agents
CPT/HCPCS: 36415; 80053; 81001; 83605; 85025; 87040; 87086; 96365; 99285; J0696; 87186